=== PATIENT | male | born 1975 | race Caucasian/White ===

== ENCOUNTER 2019-06-06 20:31 | Emergency (ER) | payer MEDICAID ==
[~2019-06-06] VITALS: Ht 172.7 cm; Wt 127.0 kg
[2019-06-06 21:16] VITALS: BP 133/90
--- NOTE | 2019-06-06 21:30 | NUR ---
Dr. Paez made aware that after Pt was discharged, he used the restroom and had what appeared to be blood tinged urine. Pt continues to deny pain and is not forthcoming with information r/t his condition. Pt was placed back on tracker and orders were entered for CT scan and labwork.
[2019-06-06] MEDS ORDERED: iohexol 300mg/ml 100ml inj. ONE (21:51)
[2019-06-06 22:20] LABS: BASOPHILS % (AUTO) 0.2 % (0-1); EOSINOPHILS # (AUTO) 0.1 X10'3 (0-0.9); EOSINOPHILS % (AUTO) 0.4 % (0-6); HEMATOCRIT 48.9 % (42.0-52.0); HEMOGLOBIN 16.5 g/dl (14.0-17.9); LYMPHOCYTES # (AUTO) 1.6 X10'3 (1.1-4.8); LYMPHOCYTES % (AUTO) 11.1 % (21-51); MEAN CORPUSCULAR HEMOGLOBIN 30.6 PG (27.0-31.0); MEAN CORPUSCULAR HGB CONC 33.8 g/dL (33.0-36.5); MEAN CORPUSCULAR VOLUME 90.6 FL (78-98); MEAN PLATELET VOLUME 8.2 FL (7.4-10.4); MONOCYTES # (AUTO) 1.4 X10'3 (0-0.9); MONOCYTES % (AUTO) 9.4 % (2-12); NEUTROPHILS # (AUTO) 11.6 X10'3 (1.8-7.7); NEUTROPHILS % (AUTO) 78.9 % (42-75); PLATELET COUNT 260 X10'3 (140-440); RED CELL DISTRIBUTION WIDTH 13.1 % (11.5-14.5); WHITE BLOOD COUNT 14.7 X10'3 (4.5-11.0)
[2019-06-06 22:21] LABS: PARTIAL THROMBOPLASTIN TIME 23 SECONDS (22-32)
[2019-06-06 22:22] LABS: ALANINE AMINOTRANSFERASE 62 U/L (12-78); ALBUMIN 4.5 G/DL (3.4-5.0); ALBUMIN/GLOBULIN RATIO 1.2 (1.1-1.5); ALKALINE PHOSPHATASE 62 IU/L (46-116); AMYLASE 57 U/L (25-115); ANION GAP 9 (8-16); ASPARTATE AMINO TRANSFERASE 77 U/L (10-37); BILIRUBIN,TOTAL 0.4 MG/DL (0.1-1.0); BLOOD UREA NITROGEN 19 MG/DL (7-18); BUN/CREATININE RATIO 16.2 (5.4-32.0); CALCIUM 9.2 MG/DL (8.5-10.1); CHLORIDE 105 MMOL/L (99-107); CREATINE KINASE 882 U/L (39-308); CREATININE 1.17 MG/DL (0.60-1.10); ETHANOL 0.155 GM/DL (0.0-0.010); GLUCOSE 104 MG/DL (70-104); LIPASE 160 U/L (73-393); SODIUM 141 MMOL/L (135-145); TOTAL CARBON DIOXIDE 27.3 MMOL/L (24-32); TOTAL PROTEIN 8.2 G/DL (6.4-8.2); eGFR 68 ML/MIN
[2019-06-06 23:18] LABS: CLARITY,URINE CLOUDY (Clear); GLUCOSE, URINE NEGATIVE (Neg); KETONES,URINE NEGATIVE (Neg); LEUKOCYTE ESTERASE ,URINE NEGATIVE (Neg); NITRITES, URINE NEGATIVE (Neg); OCCULT BLOOD,URINE LARGE (Neg); PROTEIN,URINE 100 mg/dl (Neg); UROBILINOGEN,URINE 0.2 E.U/dL (0.2-1.0)
[2019-06-06 23:19] LABS: COLOR,URINE BROWN (Yellow); UA COLLECTION TYPE URINAL
--- NOTE | 2019-06-06 23:22 | NUR ---
PATIENT WAS ARGUMENTATIVE THROUGHOUT CARE. SECURITY WAS REQUESTED FOR TRANSPORT TO CT. DURING CT, HE THREATENED TO RIP OUT IV AND LEAVE THE HOSPITAL. PATIENT REFUSED TO STOP MOVING AND CT WAS WAS DIMINISHED IN QUALITY DUE TO PATIENT'S AGITATION. UPON RECIEVING CT RESULTS, DR. MAYA ADVISED PATIENT THAT HE SHOULD BE TREATED A TRAUMA PATIENT BECAUSE OF HIS SPLEEN LACERATIONS AND BROKEN RIBS. PATIENT THEN SAID HE DID NOT "FEEL SAFE" IN THE TRIAGE NURSE'S PRESENCE. DR. MAYA ADVISED HIM THAT THE TRIAGE NURSE WOULD NO LONGER BE IN CHARGE OF HIS CARE. PATIENT INSISTED ON LEAVING AGAINST MEDICAL ADVICE AND SAID HE WOULD GO TO [facility]. PATIENT WAS EXAMINED IN THE PRESENCE OF [employer] AND DEEMED AOX4.
[2019-06-06 23:24] LABS: URINE AMPHETAMINE SCREEN NEGATIVE (Neg); URINE BARBITUATE SCREEN NEGATIVE (Neg); URINE BENZODIAZEPINES SCREEN NEGATIVE (Neg); URINE CANNABINOID SCREEN NEGATIVE (Neg); URINE COCAINE SCREEN NEGATIVE (Neg); URINE METHADONE SCREEN NEGATIVE (Neg); URINE OPIATE SCREEN NEGATIVE (Neg); URINE PHENCYCLIDINE SCREEN NEGATIVE (Neg)
[2019-06-06 23:26] LABS: AMORPHOUS URATES 3+; BACTERIA,URINE NONE SEEN /HPF (Neg); FINE GRANULAR CAST 0-3 /LPF (NEGATIVE); MUCUS STRANDS NONE SEEN /LPF (Neg); RBC,URINE 50-100 /HPF (0-2); SQUAMOUS EPITHELIAL CELL,UR FEW /LPF (FEW); WBC,URINE 0-4 /HPF (0-4)
== END 2019-06-06 23:30 | disposition left against medical advice (07) ==
LOC: ER 20:32
DX: S22.43XA Multiple fractures of ribs, bilateral, initial encounter for closed fracture (principal); S36.039A Unspecified laceration of spleen, initial encounter; F10.129 Alcohol abuse with intoxication, unspecified; F17.200 Nicotine dependence, unspecified, uncomplicated; V49.88XA Car occupant (driver) (passenger) injured in other specified transport accidents, initial encounter; Y93.I9 Activity, other involving external motion; Y92.413 State road as the place of occurrence of the external cause; Y99.9 Unspecified external cause status; Y90.9 Presence of alcohol in blood, level not specified
CPT/HCPCS: 36415; 71260; 74177; 80053; 80305; 80320; 81001; 82150; 82550; 83690; 85025; 85610; 85730; 99285; Q9967